=== PATIENT | female | born 2005 | race Caucasian/White ===

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

== ENCOUNTER → 2025-04-26 | Outpatient (CLI) | payer OTHER | LOC: M SOG 06:57 | PROVIDERS: ATTEND Orthopaedic Surgery | DX: M84.362A Stress fracture, left tibia, initial encounter for fracture (principal) ==

== ENCOUNTER → 2025-08-08 | Outpatient (REF) | payer OTHER | LOC: M LAB REF 17:05 | PROVIDERS: ATTEND Physician Assistant Medical | DX: B34.9 Viral infection, unspecified (principal) ==

== ENCOUNTER → 2025-08-08 | Outpatient (REF) ==
[2025-08-08 09:21] LABS: SOFIA COVID ANTIGEN NEGATIVE (NEGATIVE)
== END ==
LOC: M EMP 08:56
PROVIDERS: ATTEND Family Medicine
DX: Z02.89 Encounter for other administrative examinations (principal)

== ENCOUNTER → 2025-08-21 | Outpatient (CLI) | payer OTHER | LOC: M WUC 10:34 | PROVIDERS: ATTEND Student in an Organized Health Care Education/Training Program | DX: M79.671 Pain in right foot (principal) ==

== ENCOUNTER → 2025-09-28 | Outpatient (CLI) | payer OTHER ==
[2025-09-28 15:02] LABS: FREE T4 1.2 NG/DL (0.83-1.43); THYROID PEROXIDASE ANTIBODY 33.0 U/ML (<60.0); THYROXINE (T4) 8.1 UG/DL (5.5-11.1)
== END ==
LOC: M LAB 14:06
PROVIDERS: ATTEND Registered Nurse
DX: R63.5 Abnormal weight gain (principal)